=== PATIENT | male | born 1940 | race Caucasian/White ===

== ENCOUNTER → 2016-07-13 | Day surgery (SDC) | payer OTHER ==
[~2016-07-13] MED LIST: DEXAMETHASONE SOD PHOS 4 MG/ML VIAL ONE; EPINEPHrine HCL (1:1000) 1 MG/ML VIAL ONE; LACTATED RINGER'S 1000 ML INJ 1,000 ML ONE; MOXIFLOXACIN 0.5% OPHT SOLN 3 ML BTL ONE; ONDANSETRON HCL 4 MG/2 ML VIAL IV PUSH ONE; PHENYLEPHRINE HCL 10% OPTH SOLN 5 ML BTL ONE; PROPOFOL 200 MG/20 ML AMP IV ONE; SODIUM CHLORIDE 0.9% INJ 10 ML ONE; TETRACAINE 0.5% OPTH SOLN 4 ML BTL ONE; TOBRAMYCIN/DEXAMETHASONE OPTH OINT 3.5 GM TUBE ONE; TRIAMCINOLONE ACETONIDE 40 MG/ML VIAL ONE; ceFAZolin INJ 1,000 MG VIAL ONE; prednisoLONE ACETATE 1% OPHT SUSP 5 ML BTL ONE
--- NOTE | 2016-07-17 10:30 | TN ---
cc: FRANCK FLORENTINO MD Corrected Copy: 07/19/16 DATE OF SURGERY: 07/13/2016 PREOPERATIVE DIAGNOSIS: Epiretinal membrane, metamorphopsia, retinal edema, right eye. POSTOPERATIVE DIAGNOSIS: Epiretinal membrane, metamorphopsia, retinal edema, right eye. PROCEDURE Pars vitrectomy, removal of epiretinal membrane / internal limiting membrane, right eye. SURGEON Franck Florentino MD ANESTHESIA Dr. Guerrier, General BLOOD LOSS Less than 1 cc. COMPLICATIONS None INDICATIONS FOR PROCEDURE This is a delightful patient who presented with the worsening metamorphopsia and was found to have a significant epiretinal membrane of his right eye. The metamorphopsia was interfering with his daily life, and could no longer be tolerated by the patient. The patient elected for surgical correction. PROCEDURE NOTE After informed consent was obtained, the patient was brought to the operating room until general anesthesia was established. The right eye was prepped and draped in sterile fashion with Betadine in the conjunctival fornix. A three port pars plana vitrectomy was established with self-retaining infusion cannula. Core vitreous was removed and vitreous traction relieved. The ILM/ERM complex was highlighted with ICG and removed with the Campos ILM forceps. Scleral depression examination revealed no untreated retinal holes, tears or detachments. Intravitreal Kenalog was instilled. Trocars removed and sclerotomies closed. Subconjunctival injection of Ancef and dexamethasone were given. The eye was patched with Tobramycin ointment. The patient brought to recovery room in stable condition and will continue followup with [facility] for his postoperative care. MD JAMA Dodge/MAREN /6:56 PM /11:56 AM
== END | disposition home or self-care (01) ==
LOC: ESDC 06:06
PROVIDERS: ATTEND Ophthalmology
DX: H35.371 Puckering of macula, right eye (principal)
CPT/HCPCS: 00145; 67041; J0171; J0690; J1100; J2405; J3010; J3301; J7120